=== PATIENT | female | born 1945 | race Caucasian/White ===

== ENCOUNTER 2025-01-10 10:22 | Emergency (ER) | payer MEDICARE, SELFPAY ==
[2025-01-10] VITALS (11 sets, daily range): BP systolic 141–187; BP diastolic 79–101; PULSE 72–105; RESP 18; TEMP 36.7–36.8; O2SAT 98–100; BMI 30.5
--- NOTE | 2025-01-10 10:31 | XR_ITS ---
FINAL REPORT CLINICAL HISTORY: Fall, distal / anterior laceration to jimenez COMPARISON: None FINDINGS: 2 views of the left tibia/fibula were obtained. 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 The hardware is unremarkable. There is no evidence of acute fracture. There is a 4 mm density in the pretibial soft tissues favored to represent soft tissue calcification as opposed to a foreign body. This density occurs along the lower margin of the soft tissue injury. IMPRESSION: No acute bony abnormality. 4 mm density near the soft tissue wound favored to represent pre-existing soft tissue calcification over foreign body. Reviewed, Interpreted and Dictated by Stefano Mcghee MD Transcribed by Flakita Jain Authenticated and . [facility]
--- NOTE | 2025-01-10 10:31 | ED_ITS ---
Discharge Plan Disposition Patient Disposition: Home, Self-Care Prescriptions Prescriptions: No Action warfarin 5 MG tablet 5 mg PO DAILY furosemide 20 MG tablet 20 mg PO DAILY Referrals Follow up/Referrals: Provider,Referral, [Referring] - See instructions Activity Restrictions/Add. Instructions Additional Instructions/Restrictions: Keep the wound wrapped with the supplies provided to you. It may take a day for it to completely stop bleeding. If bleeding worsens, put pressure on the wound until it stops. Keep the wound clean by using gentle soap and water. Do not scrub as this may pop the stitches loose. If you develop any signs of infection, such as redness, swelling, pus draining from the wound, or fever, return to the emergency department for evaluation Clinical Impressions Clinical Impression: Laceration of left leg Instructions Patient Instructions: DI for Laceration Repair Print Language Print Language: Georgian Discharge ED Provider: Sam Hernandez General Adult HPI General Chief complaint: Wound/Laceration Stated complaint: AO 01/10/25 hit head Time Seen by Provider: 01/10/25 10:26 History of Present Illness HPI narrative: Cee Carpio is a 79-year-old female with past medical history of blood clots in her lungs on Coumadin who presents to the emergency department with a laceration to her left jimenez. Patient states that she was at the [employer] [facility] and ran to put ambrosio on her sisters [employer] site, when she sat down on her bench and the bench gave way, causing her to fall backwards. She does not know which she cut her left leg on. She denies any head trauma or loss of consciousness. She is complaining of pain and a large laceration to her left jimenez. She reports that her tetanus is up-to-date (last received on Monday) Related Data Home Medications ?Medication ?Instructions ?Recorded ?Confirmed furosemide 20 mg tablet 20 mg PO DAILY Fluid 07/26/19 07/26/19 warfarin 5 mg tablet 5 mg PO DAILY Blood thinner 07/26/19 07/26/19 Allergies Allergy/AdvReac Type Severity Reaction Status Date / Time No Known Allergies Allergy Verified 07/26/19 20:35 [facility] Disclaimer: The information contained in this section may have been updated after the patient was seen, as this information can be updated by other users. Social History Smoking Status: Never smoker alcohol intake: never current occupational status: retired Travel in the last 8 weeks?: None housing: house Have you lived/traveled outside [place] in past 30 days?: No Contact w/someone who lives/traveled outside US past 30 days?: No Exposure to someone with infectious disease in past 14 days?: No Do you have a fever (greater than 100.4 F or 38 C)?: No Have you tested positive for COVID-19?: No Exposed to someone with COVID-19 in past 14 days?: No Do you have a sore throat?: No Do you have a cough?: No Do you have any weakness?: No Do you have any diarrhea?: No Are you experiencing any unusual bleeding?: No Do you have any muscle aches/pain?: No Do you have any abdominal pain?: No Are you experiencing loss of taste or smell?: No Other Medical History Have you received the Flu Vaccine for this season: No Have you received the Pneumonia Vaccine: No ROS Obtained: Yes Systems reviewed as appropriate & no additional complaints except as documented Physical Exam General General appearance: alert and in no apparent distress Head Head exam: atraumatic Eye Eye exam: Present normal appearance ENT ENT exam: Present normal external ear exam Neck Neck exam: Present full ROM Chest Chest inspection: Present symmetric chest wall rise Respiratory Respiratory exam: Present normal lung sounds bilaterally; Absent respiratory distress, wheezes or stridor Cardiovascular Cardiovascular exam: Present regular rate and normal rhythm Abdominal Exam Abdominal exam: Present soft; Absent tenderness or guarding Extremities Exam Extremities exam: Present normal inspection Back Exam Back exam: Present normal inspection Neurological Exam Neurological exam: Present alert and oriented X3 Psychiatric Psychiatric exam: Present normal affect Skin Skin exam: Present warm, dry and other (LLE: Large 8 cm laceration to the left lateral jimenez. Venous oozing present. Exposed subcutaneous tissue. Neuro vastly intact distally with 2+ DP pulse.) Medical Decision Making Medical Records Screening: Per USPSTF and CDC recommendations, given the prevalence of disease in our region, it is our hospital?s policy to screen for HIV and viral Hepatitis for all patients aged 18 and over and those with ongoing risk factors. Ranjeet Inquiry Pt receiving controlled substance: No Vital Signs: 01/10/25 10:30 01/10/25 11:00 01/10/25 11:30 Temperature 98.3 F Temperature Source Oral Pulse Rate 79 75 Pulse Rate [Right Radial] 105 H Respiratory Rate 18 Blood Pressure 160/86 H 141/99 H Blood Pressure [Right Arm] 187/101 H Blood Pressure Mean 113 Blood Pressure Mean [Right Arm] 129 Blood Pressure Source [Right Arm] Automatic Cuff Blood Pressure Position [Right Arm] Sitting 02 Sat by Pulse Oximetry 100 99 98 Oxygen Delivery Method Room Air 01/10/25 12:00 01/10/25 12:30 01/10/25 13:00 Temperature Temperature Source Pulse Rate 74 72 73 Pulse Rate [Right Radial] Respiratory Rate Blood Pressure 162/82 H 154/79 H 151/87 H Blood Pressure [Right Arm] Blood Pressure Mean 117 104 Blood Pressure Mean [Right Arm] Blood Pressure Source [Right Arm] Blood Pressure Position [Right Arm] 02 Sat by Pulse Oximetry 98 99 98 Oxygen Delivery Method Room Air 01/10/25 13:30 01/10/25 14:05 01/10/25 14:30 Temperature Temperature Source Pulse Rate 75 95 H 74 Pulse Rate [Right Radial] Respiratory Rate Blood Pressure 150/87 H 164/91 H 161/82 H Blood Pressure [Right Arm] Blood Pressure Mean Blood Pressure Mean [Right Arm] Blood Pressure Source [Right Arm] Blood Pressure Position [Right Arm] 02 Sat by Pulse Oximetry 98 100 99 Oxygen Delivery Method Room Air Room Air Room Air 01/10/25 15:00 Temperature Temperature Source Pulse Rate 73 Pulse Rate [Right Radial] Respiratory Rate Blood Pressure 159/87 H Blood Pressure [Right Arm] Blood Pressure Mean Blood Pressure Mean [Right Arm] Blood Pressure Source [Right Arm] Blood Pressure Position [Right Arm] 02 Sat by Pulse Oximetry 100 Oxygen Delivery Method Room Air Orders (Tests/Meds): ED MEDICATIONS Discontinued Medications Generic Name Dose Route Start Last Admin Trade Name Blayne PRN Reason Stop Dose Admin Acetaminophen 1,000 mg 01/10/25 10:31 01/10/25 10:41 Acetaminophen 500mg Tab PO 01/10/25 10:32 1,000 mg ONCE ONE Administration Lidocaine HCl 20 ml 01/10/25 12:00 01/10/25 14:09 Lidocaine 1% 20ml Mdv IJ 01/10/25 12:01 20 ml ONCE ONE Administration Oxycodone HCl 5 mg 01/10/25 10:32 01/10/25 10:40 Oxycodone 5mg Immediate Release Tablet PO 01/10/25 10:33 5 mg ONCE ONE Administration Tranexamic Acid 200 mg 01/10/25 14:30 01/10/25 14:29 Tranexamic Acid 1,000 Mg/10 Ml Vial TP 01/10/25 14:31 200 mg ONCE ONE Administration ORDERS Category Date Time Status Fibula/tibia XR left 2 views [XR tibia fibula LT 2V] Exams 01/10/25 10:31 Completed Stat Medical Decision Narrative: Cee Carpio is a 79-year-old female with past medical history of blood clots in her lungs on Coumadin who presents to the emergency department with a laceration to her left jimenez. Patient states that she was at the [employer] and ran to put ambrosio on her sisters [employer] site, when she sat down on her bench and the bench gave way, causing her to fall backwards. She does not know which she cut her left leg on. She denies any head trauma or loss of consciousness. She is complaining of pain and a large laceration to her left jimenez. She reports that her tetanus is up-to-date (last received on Monday). On arrival, patient's blood pressure mildly elevated at 141/99, heart rate within normal limits, breathing comfortably. Afebrile. Patient has a large laceration with venous oozing over the left lateral jimenez. Exposed subcutaneous tissue but no obvious bone. Neuro vastly intact distally with 2+ radial pulses and moving her foot without difficulty. Sensation grossly intact. Differential diagnosis includes, but is not limited to: Laceration, soft tissue injury, tendinous injury, ligamentous injury, neurovascular injury, retained foreign body, fracture, among others. Work of the emergency department included: Left tib-fib x-rays. X-ray imaging interpreted by me personally. No acute bony injury. No retained foreign body. See radiology report for details. Patient's wound was cleaned with bacitracin and Hibiclens and irrigated thorough ly. Patient's laceration was then repaired using 3-0 nylon sutures. See procedure note for details. Patient continued to have some venous oozing from a small area on the left lower extremity. Surgicel and pressure dressing was applied. Patient continued to have a small amount of oozing. She was then given TXA topically. This slowed the oozing, however still mildly present. Is felt that since she is on warfarin, she would likely ooze for a short time but had significantly improved. Is felt that she is appropriate for discharge at this time. She was instructed to keep the wound clean base and gentle soap and water starting tomorrow. Return precautions were given for any evidence of infection. She was instructed to have the sutures removed in 10 to 14 days. All questions were answered. She demonstrated understanding and was in agreement with this plan. She was then discharged from the emergency department in stable condition Procedures Laceration Laceration 1: Site: lower extremity Side (If applicable): left Size (cm): 8 Description: stellate Depth: simple, single layer Local Anesthetic: lidocaine 1% Amount of anesthesia used (mL): 20 Pre-repair: wound explored and irrigated extensively Skin layer closed with: nylon Size (cm): 3-0 Number of sutures: 23 Technique: simple, interrupted and horizontal mattress Critical Care Critical Care Time Critical Care Time: Yes Attestation: On 01/10/25, the high probability of a clinically significant, sudden or life threatening deterioration of the following system(s) required my full and direct attention, intervention and personal management. The time I documented below is in addition to time spent performing reported procedures but includes the following listed in this critical care notation. Total Time Total Critical Care Time: 35
[2025-01-10] MEDS: OXYCODONE 5MG IMMEDIATE RELEASE TABLET 5 MG PO (10:40)
[2025-01-10] MEDS: ACETAMINOPHEN 500MG TAB 1000 MG PO (10:41)
--- NOTE | 2025-01-10 11:20 | PC.NURSE ---
Lac has been cleaned with hibiclens and betadine at this time
--- NOTE | 2025-01-10 14:00 | PC.NURSE ---
dressing changed on left lower leg due to blood saturation.
[2025-01-10] MEDS: LIDOCAINE 1% 20ML MDV 20 ML IJ (14:09)
[2025-01-10] MEDS: TRANEXAMIC ACID 1,000 MG/10 ML VIAL 200 MG TP (14:29)
--- NOTE | 2025-01-10 14:43 | PC.NURSE ---
txa applied to wound due to continuous oozing from site. pressure dressing reapplied
--- NOTE | 2025-01-10 15:29 | PC.NURSE ---
call made to pt son in law luis, informed him of pt being discharged, he states that he will be here in approx 30 minutes.
== END 2025-01-10 15:48 | disposition home or self-care (01) ==
PROVIDERS: Emergency Provider Student in an Organized Health Care Education/Training Program; PCP Internal Medicine
DX: S06.0X0A Concussion without loss of consciousness, initial encounter (principal); S81.812A Laceration without foreign body, left lower leg, initial encounter; I26.09 Other pulmonary embolism with acute cor pulmonale; W18.30XA Fall on same level, unspecified, initial encounter
CPT/HCPCS: 12002; 73590; 99284; J2003